=== PATIENT | female | born 1960 | race Caucasian/White ===

== ENCOUNTER → 2020-02-22 | Outpatient (CLI) | payer OTHER ==
[2020-02-22 14:11] LABS: CREATININE 0.8 mg/dL (0.6-1.0)
== END ==
LOC: LABMALL 13:11 → CAT 13:11
PROVIDERS: Family Medicine
DX: K57.30 Diverticulosis of large intestine without perforation or abscess without bleeding (principal); K57.32 Diverticulitis of large intestine without perforation or abscess without bleeding

== ENCOUNTER → 2020-04-13 | Outpatient (CLI) | payer OTHER ==
[~2020-04-13] VITALS: Ht 167.6 cm; Wt 77.1 kg
[~2020-04-13] MED LIST: AMBIEN5 MG PO; BUSPIRONE HCL10 MG PO; HAIR, SKIN & N1 EAC3 PO; STOOL SOFTENER100 MG PO; ZOLOFT100 MG PO
--- NOTE | 2020-04-13 17:28 | P ---
[facility] [place] [address] PROCEDURE REPORT Name: DANIEL NG Room #: REG [facility]ITAL[facility].#: [id number] Admission: 04/13/20 Attend Phys: Kahlil Reyes Discharge: Date of : 58 Report #: [id number] THIS REPORT FOR: cc: FAM - Family physician unknown FAM - Family physician unknown Kahlil Kelly MD ~ CC: Kahlil Kelly [facility] unknown TUCKER PHILLIPS DATE OF SERVICE: 04/13/2020 PROCEDURE PERFORMED: Colonoscopy. HISTORY OF PRESENT ILLNESS: The patient is a 59-year-old female who was initially seen by myself in the office on 07/14/2019 for recurrent diverticulitis. At that time, she had had approximately 3-4 episodes typically presenting with left lower quadrant abdominal pain, treated with outpatient antibiotics and resolved. I explained to the patient with the number of episodes she has had, she could consider surgical resection of her sigmoid colon. The patient then had another episode in January of this year. CT scan on 02/22/2020 showed changes consistent with acute diverticulitis involving the distal transverse colon and most proximal descending colon. She did report pain was different location in the left upper quadrant, also treated with antibiotics and resolved. She is here today for colonoscopy. She denies any symptoms at this time. There is no family history of colon cancer. DESCRIPTION OF PROCEDURE: The risks and benefits of the procedure were explained to the patient, those risks including but not limited to bleeding, perforation and the risk of sedation. She understood these risks and gave informed consent. Sedation was given using propofol per Anesthesia. Next, a digital rectal exam was initially performed which showed small external hemorrhoid, otherwise normal. Next, using a standard Olympus colonoscope, the scope was placed in the patient's anus and advanced under direct vision to the cecum. The overall prep was excellent. The cecum and ileocecal valve were normal in appearance. A few small diverticula were noted in the ascending colon. No evidence of inflammation, otherwise normal. The transverse colon was normal. In the descending colon, a few small diverticula were noted. No evidence of inflammation. More diverticula were noted in the sigmoid colon, also no evidence of inflammation. The rectal mucosa was normal. On retroflexion, small nonbleeding internal hemorrhoids were noted. The scope was then withdrawn and the procedure terminated. The patient tolerated the procedure well. IMPRESSION: [facility] [address] [place] [address] PROCEDURE REPORT Name: DANIEL NG Room #: REG CLI [facility] [id number] Admission: 04/13/20 Attend Phys: Kahlil Reyes Discharge: Date of : 58 Report #: [id number] 1. Diverticulosis, mild involvement involving the ascending and descending colon, more significant diverticulosis in the sigmoid colon, no evidence of active inflammation. 2. Small internal and external hemorrhoids. RECOMMENDATIONS: The patient has now had a total of 4-5 episodes of diverticulitis in the last few years. Again, we discussed the possibility of surgery. Typically, she has been having difficulty in the left lower quadrant sigmoid colon. I would consider possible resection, not clear if a portion of the descending colon could also be removed at the same time. In the meantime, continue high fiber diet. Would repeat colonoscopy in 10 years. Thank you for allowing me to participate in her care. <ELECTRONICALLY SIGNED> By: Kahlil Kelly MD 04/13/20 1728 [id number] Kahlil Kelly MD /nt
== END ==
LOC: GI 07:02
DX: R10.32 Left lower quadrant pain (principal); K57.30 Diverticulosis of large intestine without perforation or abscess without bleeding; K64.8 Other hemorrhoids; K64.4 Residual hemorrhoidal skin tags; F32.9 Major depressive disorder, single episode, unspecified; F41.9 Anxiety disorder, unspecified; Z98.890 Other specified postprocedural states; Z79.899 Other long term (current) drug therapy; Z87.891 Personal history of nicotine dependence
CPT/HCPCS: 62110; 62900

== ENCOUNTER 2020-06-25 09:35 | Emergency (ER) | payer OTHER ==
[~2020-06-25] VITALS: Ht 167.6 cm; Wt 79.4 kg
[2020-06-25] MEDS ORDERED: NORCO 7.5-3251 EACH PO (12:49)
[2020-06-25 12:50] VITALS: BP 123/70
== END 2020-06-25 12:50 | disposition home or self-care (01) ==
LOC: ER 09:35
DX: S63.502A Unspecified sprain of left wrist, initial encounter (principal); S83.92XA Sprain of unspecified site of left knee, initial encounter; Z79.899 Other long term (current) drug therapy; Z87.891 Personal history of nicotine dependence; W18.39XA Other fall on same level, initial encounter; Y93.89 Activity, other specified; Y92.89 Other specified places as the place of occurrence of the external cause; Y99.8 Other external cause status